=== PATIENT | female | born 1990 | race Caucasian/White ===

== ENCOUNTER 2020-11-30 19:35 | Emergency (ER) | payer OTHER ==
[~2020-11-30 19:35] MED LIST: COLACE 100MG C100 MG PO; FEOSOL325 MG PO; IBU800 MG PO; IBUPROFEN600 MG PO; LORTAB 5-325 M1 EACH PO; PENVEE K 500 M500 MG PO; PRENATAL VITAM1 EAC8 PO; VENTOLIN/PROVE0.5 ML INH; Viscous lidocaine2% PO
== END 2020-11-30 23:00 | disposition left against medical advice (07) ==
LOC: ER1 19:35
DX: J02.9 Acute pharyngitis, unspecified (principal); Z53.21 Procedure and treatment not carried out due to patient leaving prior to being seen by health care provider
CPT/HCPCS: 99281